=== PATIENT | female | born 1935 | race Two or more races ===

== ENCOUNTER 2024-04-28 15:11 | Emergency (ER) | payer OTHER ==
[~2024-04-28] VITALS: Ht 165.1 cm; Wt 82.0 kg
[2024-04-28 15:31] VITALS: BP 153/81; PULSE 92; RESP 18; O2SAT 96
--- NOTE | 2024-04-29 10:55 | ECG ---
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
--- NOTE | 2024-04-29 13:06 | ECG ---
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
== END 2024-04-28 18:31 | disposition left against medical advice (07) ==
LOC: ER 15:11
CPT/HCPCS: 93005

== ENCOUNTER → 2024-06-17 | Outpatient (CLI) | payer OTHER ==
[2024-06-17 15:51] LABS: Basophils # (auto) 0.1 10 ^3/uL (0-0.2); Basophils % (auto) 0.8 % (0.0-2.0); Eosinophils # (auto) 0.1 10 ^3/uL (0-0.8); Eosinophils % (auto) 1.1 % (0.0-7.0); Hematocrit 42.8 % (36.0-46.0); Hemoglobin 14.3 g/dL (12.2-16.2); Lymphocytes % (auto) 14.7 % (10.0-50.0); Mean Corpuscular Hgb Conc. 33.4 g/dL (32.0-36.0); Monocytes # (auto) 0.6 10 ^3/uL (0-1.3); Monocytes % (auto) 8.1 % (0.0-12.0); Neutrophils # (auto) 5.2 10 ^3/uL (1.6-8.6); Neutrophils % (auto) 75.3 % (37.0-80.0); Nucleated Red Blood Cells % 0.1 %; Platelet Count (auto) 220 10^3/uL (140-450); Red Blood Cells 4.46 10^6/uL (4.0-5.20); White Blood Cell 6.9 10^3/uL (4.4-10.8)
[2024-06-17 16:11] LABS: Alanine Aminotransferase 10 U/L (7-40); Albumin 4.1 g/dL (3.2-4.8); Alkaline Phosphatase 81 U/L (46-116); Anion Gap 6 (5-15); Aspartate Aminotransferase 18 U/L (13-40); Bilirubin, Total 0.5 mg/dL (0.2-1.0); Blood Urea Nitrogen 15 mg/dL (9-23); Carbon Dioxide 26 mmol/L (20-31); Chloride 103 mmol/L (98-107); Glucose 97 mg/dL (74-106); Potassium 4.6 mmol/L (3.5-5.1); Total Protein 7.2 g/dL (5.7-8.2)
[2024-06-17 16:21] LABS: Sodium 135 mmol/L (136-145)
[2024-06-17 16:30] LABS: Calcium 10.5 mg/dL (8.7-10.4)
[2024-06-18 10:44] LABS: Cholesterol 114 mg/dL (< 200)
[2024-06-18 10:45] LABS: Triglycerides 84 mg/dL (< 150)
[2024-06-18 10:46] LABS: LDL Cholesterol 57 mg/dL (< 100)
[2024-06-18 10:47] LABS: HDL Cholesterol 45 mg/dL (40-59)
== END | disposition home or self-care (01) ==
LOC: LAB 15:29
PROVIDERS: ATTEND Student in an Organized Health Care Education/Training Program
DX: I10 Essential (primary) hypertension (principal); R73.9 Hyperglycemia, unspecified
CPT/HCPCS: 36415; 80053; 80061; 83036; 84443; 85025